=== PATIENT | male | born 1985 ===

== ENCOUNTER 2017-08-17 02:51 | Emergency (ER) | payer SELFPAY ==
[2017-08-17 03:11] VITALS: BP 140/77; PULSE 150; RESP 20; TEMP 97.8; O2SAT 96
[2017-08-17] MEDS ORDERED: Tdap Vaccine 0.5 ml Vial (10-64 yrs) IM ONE ×2 (03:28→04:39)
[2017-08-17] MEDS ORDERED: Lidocaine 1% Inj (20ml) ONE (04:00)
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
== END 2017-08-17 04:46 ==
LOC: H.ER 02:51
DX: S61.216A Laceration without foreign body of right little finger without damage to nail, initial encounter (principal); W25.XXXA Contact with sharp glass, initial encounter; Y92.89 Other specified places as the place of occurrence of the external cause; F43.20 Adjustment disorder, unspecified; Z88.0 Allergy status to penicillin; F17.210 Nicotine dependence, cigarettes, uncomplicated